=== PATIENT | female | born 1965 | race Caucasian/White ===

== ENCOUNTER 2019-11-17 08:07 | Outpatient (CLI) | payer OTHER ==
[~2019-11-17 08:07] MED LIST: KETO10TA2 PO; ORPH100T PO
== END 2019-11-17 08:12 | disposition home or self-care (01) ==
LOC: NUCLEAR 08:07
DX: I11.9 Hypertensive heart disease without heart failure (principal); I25.10 Atherosclerotic heart disease of native coronary artery without angina pectoris
CPT/HCPCS: 78452; 93017; A9500